=== PATIENT | female | born 1990 | race Caucasian/White ===

== ENCOUNTER → 2024-07-02 | Emergency (ER) | payer OTHER ==
[~2024-07-02] VITALS: Ht 152.4 cm; Wt 92.0 kg
[2024-07-02 15:15] VITALS: O2SAT 99
[2024-07-02 15:29] VITALS: BP 134/88; PULSE 94; TEMP 98.3; O2SAT 99
[2024-07-02 17:04] LABS: CHLORIDE 103 mEq/L (98-107); POTASSIUM 3.7 mEq/L (3.5-5.1); SODIUM 137 mEq/L (136-145)
[2024-07-02 17:05] LABS: CARBON DIOXIDE 25 mEq/L (21-32)
[2024-07-02 17:06] LABS: CALCIUM 9.1 mg/dL (8.7-10.4)
[2024-07-02 17:10] LABS: CREATININE 0.7 mg/dL (0.6-1.0)
[2024-07-02 17:11] LABS: GLUCOSE 102 mg/dL (70-105); UREA NITROGEN BLOOD 8 mg/dL (9-23)
[2024-07-02 17:23] LABS: HCG SCREEN NEGATIVE; TROPONIN I HIGH SENSITIVITY < 4 ng/L (3.0-34)
[2024-07-02 19:00] VITALS: RESP 19
== END ==
LOC: ER 15:03
DX: R07.89 Other chest pain (principal); F41.9 Anxiety disorder, unspecified
CPT/HCPCS: 36415; 71045; 80048; 84484; 84703; 93005; 99285